=== PATIENT | female | born 1995 | race Caucasian/White ===

== ENCOUNTER 2019-11-25 00:13 | Observation (INO) | payer BC ==
[2019-11-25] MEDS ORDERED: NS 0.9% 1000 ML** 1,000 ML IV ONE ×2 (01:37→04:46)
[2019-11-25] MEDS ORDERED: Ketorolac INJ* 30 MG/ML 1 ML VIAL IV PUSH ONE (01:37)
[2019-11-25] MEDS ORDERED: Ondansetron INJ* 2 MG/ML VIAL IV ONE (01:38)
--- NOTE | 2019-11-25 01:43 | ED ---
GI/ HPI - HPI Summary HPI Summary: 24 year old female presents with abd pain tonight. States pain started in lower abdomen. States pain sometimes radiates to her back. Never had this before. Pain is worst when she moves. She admits to some nausea vomiting. She admits to some pelvic pressure. She denies any abnormal vaginal discharge. Denies any chance of . She denies any diarrhea or constipation. He had normal bowel movement yesterday. No previous abd surgeries. Has history of bipolar. - History of Current Complaint Chief Complaint: EDAbdPain Time Seen by Provider: 11/25/19 01:32 Stated Complaint: ABDOMINAL PAIN PER PT Pain Intensity: 7 - Allergy/Home Medications Allergies/Adverse Reactions: Allergies Allergy/AdvReac Type Severity Reaction Status Date / Time No Known Allergies Allergy Verified 11/25/19 00:17 Home Medications: Home Medications NK [No Home Medications Reported] 02/01/14 [History Confirmed 02/01/14] PMH/Surg Hx/FS Hx/Imm Hx Endocrine/Hematology History: Denies: Hx Anticoagulant Therapy Respiratory History: Denies: Hx Asthma Infectious Disease History: No Infectious Disease History: Denies: Traveled Outside the [place] in Last 30 Days - Family History Known Family History: Positive: Non-Contributory - Social History Alcohol Use: None Substance Use Type: Reports: None Review of Systems Negative: Fever Negative: Chest Pain Negative: Shortness Of Breath Positive: Abdominal Pain, Vomiting, Nausea. Negative: Diarrhea All Other Systems Reviewed And Are Negative: Yes Physical Exam Triage Information Reviewed: Yes Vital Signs On Initial Exam: Initial Vitals Temp Pulse Resp BP Pulse Ox 100.2 F 83 15 118/70 99 11/25/19 00:16 11/25/19 00:16 11/25/19 00:16 11/25/19 00:16 11/25/19 00:16 Vital Signs Reviewed: Yes Appearance: Positive: Well-Appearing Skin: Positive: Warm, Dry Head/Face: Positive: Normal Head/Face Inspection Eyes: Positive: Normal, Conjunctiva Clear ENT: Positive: Pharynx normal Respiratory/Lung Sounds: Positive: Clear to Auscultation, Breath Sounds Present Cardiovascular: Positive: Normal, RRR Abdomen Description: Positive: Soft, Other: - tenderness greatest in RLQ, pos obturator Bowel Sounds: Positive: Present Musculoskeletal: Positive: Normal Neurological: Positive: Normal Psychiatric: Positive: Normal Procedures - Sedation Patient Received Moderate/Deep Sedation with Procedure: No Diagnostics - Vital Signs Vital Signs Temp Pulse Resp BP Pulse Ox 11/25/19 00:16 100.2 F 83 15 118/70 99 - Laboratory Lab Statement: Any lab studies that have been ordered have been reviewed, and results considered in the medical decision making process. Re-Evaluation - Re-Evaluation First Eval Re-Evaluation Time: 02:22 Change: Improved Comment: pain is better GIGU Course/Dx - Course Course Of Treatment: 24 year old female presents with abd pain tonight. States pain started in lower abdomen. States pain sometimes radiates to her back. Never had this before. Pain is worst when she moves. She admits to some nausea vomiting. She admits to some pelvic pressure. She denies any abnormal vaginal discharge. Denies any chance of . She denies any diarrhea or constipation. He had normal bowel movement yesterday. No previous abd surgeries. Has history of bipolar. On exam tenderness greatest in RLQ. pos obturator. patient will be signed out to dr barajas pending lab work and CT. - Diagnoses Differential Diagnoses - Female: Appendicitis, Gastroenteritis (Viral), Ovarian Cyst Provider Diagnoses: Abdominal pain - Critical Care Time Critical Care Statement: Critical care time is provided exclusive of any time spent performing procedures. Discharge ED - Sign-Out/Discharge Documenting (check all that apply): Sign-Out Patient Signing out patient TO: Brandie Barajas - Discharge Plan Condition: Stable Referrals: No Primary Care Phys,NOPCP [Primary Care Provider] - - Billing Disposition and Condition Condition: STABLE
--- NOTE | 2019-11-25 02:21 | ED ---
Progress - Progress Note Progress Note: Patient is received as a sign-out from CHAR Chakraborty at approximately 0230 11/25/19 shift end pending labs and CT abd/pel. Bloodwork was obtained, abnormal values include WBC 19.2, absolute neuts 16.4, absolute monos 1.2, chloride 100, glucose 106, CRP 8.33. CT ABD/PEL IMPRESSION: 1. Mild appendicitis. 2. Otherwise negative CT abdomen/pelvis. No renal or ureteral calculi are evident and there is no evidence of obstructive uropathy. THIS REPORT WAS REVIEWED BY ED PHYSICIAN. 0417 - [facility] called informing of appendicitis. Surgery consult to be obtained. 0459 - Patient's case was discussed with Dr. Perez, Dr. Perez accepts for admission. Home Medications Medication Instructions Recorded Confirmed Type ARIPiprazole TAB* [Abilify TAB*] 10 mg PO DAILY 11/25/19 11/25/19 History Re-Evaluation - Re-Evaluation First Eval Re-Evaluation Time: 02:22 Change: Improved Comment: pain is better Course/Dx - Course Course Of Treatment: During ED course, patient received fluids. - Diagnoses Provider Diagnoses: Appendicitis - Provider Notifications Discussed Care Of Patient With: Rafael Perez Time Discussed With Above Provider: 04:59 Instructed by Provider To: Other - Patient's case was discussed with Dr. Perez , Dr. Perez accepts for admission. - Critical Care Time Critical Care Statement: Critical care time is provided exclusive of any time spent performing procedures. Discharge ED - Sign-Out/Discharge Documenting (check all that apply): Patient Departure - admit - Discharge Plan Condition: Stable Disposition: ADMITTED TO [facility] Referrals: No Primary Care Phys,NOPCP [Primary Care Provider] - - Attestation Statements Document Initiated by Scribe: Yes Documenting Scribe: PETERSON TSE Provider For Whom Scribe is Documenting (Include Credential): VIVIAN MARTEL MD Scribe Attestation: PETERSON West, scribed for VIVIAN MARTEL MD on 11/25/19 at 0503. Status of Scribe Document: Ready
[2019-11-25 02:23] LABS: ABS Lymphocytes 1.5 10^3/ul (1.0-4.8); ABS Monocytes 1.2 10^3/ul (0-0.8); ABS Neutrophils 16.4 10^3/ul (1.5-7.7); Eosinophil % 0.2 %; Hematocrit 41 % (35-47); Hemoglobin 14.4 g/dL (12.0-16.0); Mean Corpuscular HGB Conc 35 g/dL (31-36); Mean Corpuscular Hemoglobin 31 pg (27-31); Mean Corpuscular Volume 87 fL (80-97); Mean Platelet Volume 9.1 fL (7.4-10.4); Platelet Count 261 10^3/uL (150-450); Red Blood Count 4.72 10^6 /uL (3.70-4.87); Red Cell Distribution Width 13 % (10-15); White Blood Count 19.2 10^3/uL (3.5-10.8)
[2019-11-25 02:40] LABS: ALT 23 U/L (7-52); AST 18 U/L (13-39); Albumin 4.6 g/dL (3.2-5.2); Albumin/Globulin Ratio 1.4 (1-3); Alkaline Phosphatase 76 U/L (34-104); Anion Gap 9 mmol/L (2-11); Blood Urea Nitrogen 10 mg/dL (6-24); C Reactive Protein 8.33 mg/L (<8.01); CO2 Carbon Dioxide 29 mmol/L (22-32); Calcium 9.8 mg/dL (8.6-10.3); Chloride 100 mmol/L (101-111); EGFR African American 103.1 (>60); EGFR Non-African American 85.2 (>60); Globulin 3.3 g/dL (2-4); Glucose 106 mg/dL (70-100); Potassium 3.5 mmol/L (3.5-5.0); Sodium 138 mmol/L (135-145); Total Protein 7.9 g/dL (6.4-8.9)
[2019-11-25 02:46] LABS: HCG Pregnancy < 0.60 mIU/mL
[2019-11-25] MEDS ORDERED: Iohexol 300* (CONTRAST) 10 ML SDV IV ONE (03:37)
[2019-11-25] MEDS ORDERED: ceFAZolin 1 GM ADVAN(*) 1 GM ADDV.VIAL IVPB ONE (05:30)
[2019-11-25] MEDS ORDERED: Morphine INJ* 2 MG/ML 1 ML SYRINGE (TWO MG - NEW SYRINGE VERSION) IV PRN (05:36)
[2019-11-25] MEDS ORDERED: Ondansetron INJ* 2 MG/ML VIAL IV PRN (05:39)
[2019-11-25] MEDS ORDERED: ceFOXitin 2 GM IVPREMIX* 2 GM/50 ML BAG IVPB ONE (05:45)
[2019-11-25 06:48] LABS: Urine Appearance Clear; Urine Bilirubin Negative (Negative); Urine Blood Negative (Negative); Urine Color Straw; Urine Glucose Negative (Negative); Urine Ketones Negative (Negative); Urine Nitrite Negative (Negative); Urine Protein Negative (Negative); Urine Specific Gravity 1.053 (1.010-1.030); Urine Urobilinogen Negative (Negative)
[2019-11-25] MEDS: Lactated Ringers 1000 ML Bag* 1,000 ML IV SCH ×2 (08:12→10:21)
--- NOTE | 2019-11-25 08:20 | HP ---
H&P (Free Text) History and Physical: History and Physical Chief complaint: ABD pain x 1 day HPI: 24 yo F that began with RLQ ABD pain last night. She ate a meal around 7 pm , began with nausea, vomiting, and pain. The pain has been getting slightly worse. Worse with movement, no alleviating factors. She has not felt this particular pain before. Denies fever, chills, SOB, chest pain. Last BM was yesterday morning and normal for her. Last meal was her dinner yesterday. Surgical history: Denies. Social history: Rare smoker, rare use of etoh. No drug use otherwise. FH: Negative for blood clots or bleeding problems. PMH: Biploar disorder. Allergies: NKDA. Home Medications Medication Instructions Recorded Confirmed Type ARIPiprazole TAB* [Abilify TAB*] 10 mg PO DAILY 11/25/19 11/25/19 History ROS: 12 point ROS negative, except as otherwise stated above. Temp Pulse Resp BP Pulse Ox 97.8 F 65 12 99/59 99 11/25/19 07:48 11/25/19 07:48 11/25/19 07:48 11/25/19 07:48 11/25/19 07:48 Laboratory Last Values WBC 19.2 10^3/uL (3.5-10.8) H 11/25/19 02:10 RBC 4.72 10^6 /uL (3.70-4.87) 11/25/19 02:10 Hgb 14.4 g/dL (12.0-16.0) 11/25/19 02:10 Hct 41 % (35-47) 11/25/19 02:10 MCV 87 fL (80-97) 11/25/19 02:10 MCH 31 pg (27-31) 11/25/19 02:10 MCHC 35 g/dL (31-36) 11/25/19 02:10 RDW 13 % (10-15) 11/25/19 02:10 Plt Count 261 10^3/uL (150-450) 11/25/19 02:10 MPV 9.1 fL (7.4-10.4) 11/25/19 02:10 Neut % (Auto) 85.5 % 11/25/19 02:10 Lymph % (Auto) 8.0 % 11/25/19 02:10 [place] % (Auto) 6.1 % 11/25/19 02:10 Eos % (Auto) 0.2 % 11/25/19 02:10 Baso % (Auto) 0.2 % 11/25/19 02:10 Absolute Neuts (auto) 16.4 10^3/ul (1.5-7.7) H 11/25/19 02:10 Absolute Lymphs (auto) 1.5 10^3/ul (1.0-4.8) 11/25/19 02:10 Absolute Monos (auto) 1.2 10^3/ul (0-0.8) H 11/25/19 02:10 Absolute Eos (auto) 0.0 10^3/ul (0-0.6) 11/25/19 02:10 Absolute Basos (auto) 0.0 10^3/ul (0-0.2) 11/25/19 02:10 Absolute Nucleated RBC 0.0 10^3/ul 11/25/19 02:10 Nucleated RBC % 0.0 11/25/19 02:10 Sodium 138 mmol/L (135-145) 11/25/19 02:10 Potassium 3.5 mmol/L (3.5-5.0) 11/25/19 02:10 Chloride 100 mmol/L (101-111) L 11/25/19 02:10 Carbon Dioxide 29 mmol/L (22-32) 11/25/19 02:10 Anion Gap 9 mmol/L (2-11) 11/25/19 02:10 BUN 10 mg/dL (6-24) 11/25/19 02:10 Creatinine 0.83 mg/dL (0.51-0.95) 11/25/19 02:10 Est GFR ( Amer) 103.1 (>60) 11/25/19 02:10 Est GFR (Non-Af Amer) 85.2 (>60) 11/25/19 02:10 BUN/Creatinine Ratio 12.0 (8-20) 11/25/19 02:10 Glucose 106 mg/dL (70-100) H 11/25/19 02:10 Lactic Acid 1.4 mmol/L (0.5-2.0) 11/25/19 07:14 Calcium 9.8 mg/dL (8.6-10.3) 11/25/19 02:10 Total Bilirubin 0.30 mg/dL (0.2-1.0) 11/25/19 02:10 AST 18 U/L (13-39) 11/25/19 02:10 ALT 23 U/L (7-52) 11/25/19 02:10 Alkaline Phosphatase 76 U/L (34-104) 11/25/19 02:10 C-Reactive Protein 8.33 mg/L (<8.01) H 11/25/19 02:10 Total Protein 7.9 g/dL (6.4-8.9) 11/25/19 02:10 Albumin 4.6 g/dL (3.2-5.2) 11/25/19 02:10 Globulin 3.3 g/dL (2-4) 11/25/19 02:10 Albumin/Globulin Ratio 1.4 (1-3) 11/25/19 02:10 Lipase 16 U/L (11.0-82.0) 11/25/19 02:10 Beta HCG, Quant < 0.60 mIU/mL 11/25/19 02:10 Urine Color Straw 11/25/19 06:35 Urine Appearance Clear 11/25/19 06:35 Urine pH 7.0 (5-9) 11/25/19 06:35 Ur Specific Chicken 1.053 (1.010-1.030) H 11/25/19 06:35 Urine Protein Negative (Negative) 11/25/19 06:35 Urine Ketones Negative (Negative) 11/25/19 06:35 Urine Blood Negative (Negative) 11/25/19 06:35 Urine Nitrate Negative (Negative) 11/25/19 06:35 Urine Bilirubin Negative (Negative) 11/25/19 06:35 Urine Urobilinogen Negative (Negative) 11/25/19 06:35 Ur Leukocyte Esterase Negative (Negative) 11/25/19 06:35 Urine Glucose Negative (Negative) 11/25/19 06:35 CT ABD/Pelvis W: Mild appendicitis, otherwise negative CT. Assessment and plan: 24 yo F with acute appendicitis. Plan is for laparoscopic appendectomy today. Continue ABX, NPO status.
[2019-11-25] MEDS ORDERED: Acetaminophen TAB* 325 MG PO ONE (09:19)
[2019-11-25] MEDS ORDERED: Buffered Lidocaine 1% SYRIN* 1 ML/SYRINGE INTRADERM ONE (09:19)
[2019-11-25] MEDS ORDERED: Naloxone* 0.4 MG/ML 1 ML VIAL IV PRN (09:20)
[2019-11-25] MEDS ORDERED: HYDROmorphone INJ1* 1 MG/ML SYRINGE IV PRN (09:20)
[2019-11-25] MEDS ORDERED: diPHENhydraMINE IV* 50 MG/ML 1 ml VIAL (BENADRYL) IV PRN (09:20)
[2019-11-25] MEDS ORDERED: oxyCODONE TAB* 5 MG TAB PO PRN (09:20)
[2019-11-25] MEDS ORDERED: PROCHLORPERAZINE INJ 5 MG/ML 2 ML VIAL IV PRN (09:20)
[2019-11-25] MEDS ORDERED: Lactated Ringers 1000 ML Bag* 1,000 ML IV SCH (10:00)
[2019-11-25] MEDS ORDERED: Acetaminophen TAB* 325 MG ONE ×2 (10:16→10:19)
[2019-11-25] MEDS ORDERED: Bupivacaine 0.25% SDV* 30 ML ONE (10:49)
[2019-11-25] MEDS ORDERED: ceFOXitin 2 GM IVPREMIX* 2 GM/50 ML BAG ONE (10:54)
[2019-11-25] MEDS ORDERED: Succinylcholine* 20 MG/ML 10 ML VIAL ONE (10:56)
[2019-11-25] MEDS ORDERED: Midazolam* 1 MG/ML 2 ML VIAL (2 MG) ONE (10:59)
[2019-11-25] MEDS ORDERED: fentaNYL* 50 MCG/ML 5 ML VIAL (250 MCG VIAL) ONE (10:59)
[2019-11-25] MEDS ORDERED: Propofol* 10 MG/ML 20 ML BTL ONE (10:59)
[2019-11-25] MEDS ORDERED: Lidocaine 2% PF * 5 ML VIAL ONE (10:59)
[2019-11-25] MEDS ORDERED: Rocuronium* 10 MG/ML VIAL ONE (11:00)
[2019-11-25] MEDS ORDERED: Glycopyrrolate IV* 0.2 MG/ML 1 ML VIAL ONE (11:27)
[2019-11-25] MEDS ORDERED: Ketorolac INJ* 30 MG/ML 1 ML VIAL ONE (11:27)
[2019-11-25] MEDS ORDERED: Ondansetron INJ* 2 MG/ML VIAL ONE (11:27)
[2019-11-25] MEDS ORDERED: Dexamethasone IV* 4 MG/ML 1 ML (4 MG) ONE (11:27)
[2019-11-25] MEDS ORDERED: HYDROmorphone INJ1* 1 MG/ML SYRINGE ONE (11:45)
--- NOTE | 2019-11-25 11:56 | BRIEFOPN ---
Brief Operative/Procedure Note - Operation Details Pre-Op Diagnosis: Acute appendicitis Post-Op Diagnosis: Acute appendicitis Procedures: Laparoscopic appendectomy Surgeon(s)/Proceduralists: Dr. Pérez Anesthesia: GETA Estimated Blood Loss: Scant Findings: As above Specimen(s)/Culture(s) Description: Appendix Complications: None Miscellaneous Procedure Notes: None
--- NOTE | 2019-11-25 12:04 | DS ---
Admit date: 11/25/2019 Discharge date: 11/25/2019 Admit diagnosis: Acute appendicitis Discharge diagnosis: Acute appendicitis PEX General: Alert, in NAD. Integumentary: No rashes, jaundice, petechia. HEENT: Oropharynx clear. Trachea midline. PERRLA. Heart: RRR, no MRG. Lungs: CTAB, no WRR. ABD: BS present. Soft, nondistended. Tender around incisions, which are C/D/I. Extremities: Distal pulses intact bilaterally. No edema. Calves soft and nontender. Labs: Unremarkable. Procedure: Laparoscopic appendectomy Hospital course: Presented with ABD to ED on 11/25/2019 and diagnosed with acute appendicitis. She was admitted and placed in SSU. Later in the day, she was taken for the above named procedure, which was tolerated well. After recovering appropriately from anesthesia, she was discharged from PACU. Instructions were given to the pt regarding diet, meds, activity, post op follow up, and care for incisions. All questions were answered. Discharged home in stable condition on 11/25/2019.
[2019-11-25] MEDS ORDERED: oxyCODONE TAB* 5 MG TAB ONE (12:53)
--- NOTE | 2019-11-25 13:25 | OP ---
OPERATIVE REPORT: DATE OF OPERATION: 11/25/19 DATE OF : [birth year] SURGEON: Gordy Pérez MD. PRE-OP DIAGNOSIS: Appendicitis. POST-OP DIAGNOSIS: Appendicitis. OPERATIVE PROCEDURE: Laparoscopic appendectomy. INDICATIONS FOR PROCEDURE: Right lower quadrant pain. CT scan concerning for appendicitis. Risks of surgery including, but not limited to, bleeding, infection, injury to intraabdominal contents including the bowel, others explained to the patient, who seemed to understand and agreed to the procedure and all questions were answered. DESCRIPTION OF PROCEDURE: The patient was taken to the operating room, placed supine, and preoperative antibiotics were given. After successful induction of general endotracheal anesthesia, the abdomen was prepped and draped in a sterile fashion. A time-out was performed indicating correct patient, correct procedure. A left lower quadrant 5-mm Optiview trocar was placed under direct visualization of the camera. Pneumoperitoneum was achieved to 15 mmHg. Camera was placed in the abdomen. The abdomen was scanned. There was no obvious injury from trocar placement. A 12 mm umbilical and 5 mm suprapubic trocar were placed under direct visualization of the camera. The patient was placed in slight Trendelenburg position, tilted towards her left and the appendix was well visualized. Slightly inflamed. The base of the appendix was isolated, divided with a stapler. The mesoappendix was divided with a staple load, vascular. The appendix was placed in an Endobag and removed via the umbilical port site. The right upper quadrant was irrigated and aspirated dry. EBL minimal. Hemostasis was intact. Clips were in place. No bleeding, no abscess in the pelvis. Pneumoperitoneum was brought down to 5 mmHg. CO2 was shut off, the rest was aspirated out. Trocars were removed. The skin was closed with Monocryl and glue. She tolerated the procedure well and she was extubated and taken to the recovery room in stable condition. [id number]/CPS #: [id number] MTDD
[2019-11-25 14:52] VITALS: BP 93/56
== END 2019-11-25 16:00 | disposition home or self-care (01) ==
LOC: ED 00:13 → SSU 05:08
PROVIDERS: ADMIT Surgery; ATTEND Surgery
DX: K35.80 Unspecified acute appendicitis (principal); R11.2 Nausea with vomiting, unspecified; Z79.899 Other long term (current) drug therapy; F31.9 Bipolar disorder, unspecified
CPT/HCPCS: 36415; 74177; 80053; 81003; 83605; 83690; 84702; 85025; 86140; 88304; 96361; 96365; 96375; 99284; A9270-GY; C1776; G0378; J0330; J0690; J0694; J1100; J1170; J1885; J2250; J2405; J2704; J3010; J3490; Q9967

== ENCOUNTER 2020-12-23 14:06 | Inpatient (IN) ==
[2020-12-23] MEDS ORDERED: Lactated Ringers 1000 ml BAG 1,000 ML IV ONE (14:34)
[2020-12-23 15:05] LABS: ABS Basophils 0.1 10^3/ul (0-0.2); ABS Eosinophils 0.1 10^3/ul (0-0.6); ABS Lymphocytes 1.9 10^3/ul (1.0-4.8); ABS Monocytes 0.6 10^3/ul (0-0.8); ABS Neutrophils 9.7 10^3/ul (1.5-7.7); Eosinophil % 0.6 %; Hematocrit 35 % (35-47); Hemoglobin 12.2 g/dL (12.0-16.0); Lymphocyte % 15.3 %; Mean Corpuscular HGB Conc 35 g/dL (31-36); Mean Corpuscular Hemoglobin 31 pg (27-31); Mean Corpuscular Volume 88 fL (80-97); Mean Platelet Volume 9.1 fL (7.4-10.4); Platelet Count 218 10^3/uL (150-450); Red Blood Count 3.96 10^6 /uL (3.70-4.87); Red Cell Distribution Width 13 % (10-15); White Blood Count 12.3 10^3/uL (3.5-10.8)
[2020-12-23 16:59] LABS: Urine Benzodiazepine Screen None Detected (None Detect); Urine Cannabinoids Screen None Detected (None Detect); Urine Opiates Screen None Detected (None Detect)
[2020-12-24] MEDS ORDERED: Morphine 10 MG/ML VIAL (1 ml) IV ONE (04:06)
[2020-12-24] MEDS ORDERED: Promethazine INJ(RESTRICTED) 25 MG/ML 1 ml VIAL IV ONE (04:10)
[2020-12-24] MEDS: Lactated Ringers 1000 ml BAG 1,000 ML IV SCH ×3 (13:47→20:39)
[2020-12-24] MEDS: Oxytocin in LR 20 UNITS/1,000 ML BAG IVPB SCH ×2 (13:49→20:38)
[2020-12-24] MEDS ORDERED: OBEPIDURAL 250 ML EPIDURAL ONE (17:19)
[2020-12-24] MEDS ORDERED: fentaNYL 100 mcg/2 ml 50 MCG/ML VIAL ONE (18:11)
[2020-12-24] MEDS ORDERED: fentaNYL 100 mcg/2 ml 50 MCG/ML VIAL IV SLOW PU ONE (19:00)
[2020-12-24] MEDS ORDERED: Lactated Ringers 1000 ml BAG 1,000 ML IV ONE (20:30)
[2020-12-24] MEDS ORDERED: Phenylephrine 40 mcg/mL 10mL (400mcg) SYRINGE IV PUSH PRN ×2 (20:30)
[2020-12-24] MEDS ORDERED: Sodium Citrate/Citric Acid LIQ 15 ML UDC PO PRN (20:30)
[2020-12-24] MEDS ORDERED: OBEPIDURAL 250 ML EPIDURAL SCH (21:00)
[2020-12-24] MEDS ORDERED: Lactated Ringers 1000 ml BAG 1,000 ML IV SCH (21:00)
[2020-12-24 21:09] LABS: Urine Appearance Cloudy; Urine Bilirubin Negative (Negative); Urine Blood Negative (Negative); Urine Color Yellow; Urine Glucose Negative (Negative); Urine Ketones 1+ (Negative); Urine Nitrite Negative (Negative); Urine Protein Negative (Negative); Urine Specific Gravity 1.008 (1.002-1.030); Urine Urobilinogen Negative (Negative)
[2020-12-25] MEDS ORDERED: OBEPIDURAL 250 ML EPIDURAL ONE (12:25)
[2020-12-25] MEDS ORDERED: Witch Hazel PAD JAR TOPICAL PRN (14:39)
[2020-12-25] MEDS ORDERED: Dibucaine 1% OINT 28.35 GM TUBE PR PRN (14:39)
[2020-12-25] MEDS ORDERED: Lactated Ringers 1000 ml BAG 1,000 ML IV SCH (15:00)
[2020-12-25] MEDS ORDERED: Oxytocin in LR 20 UNITS/1,000 ML BAG IVPB SCH (15:00)
[2020-12-25] MEDS ORDERED: Lidocaine 1% VIAL 10 MG/ML VIAL ONE (16:16)
[2020-12-26 07:07] LABS: ABS Basophils 0.1 10^3/ul (0-0.2); ABS Eosinophils 0.1 10^3/ul (0-0.6); ABS Lymphocytes 1.6 10^3/ul (1.0-4.8); ABS Monocytes 1.2 10^3/ul (0-0.8); ABS Neutrophils 12.2 10^3/ul (1.5-7.7); Eosinophil % 0.5 %; Hematocrit 28 % (35-47); Hemoglobin 9.8 g/dL (12.0-16.0); Lymphocyte % 10.6 %; Mean Corpuscular HGB Conc 35 g/dL (31-36); Mean Corpuscular Hemoglobin 31 pg (27-31); Mean Corpuscular Volume 88 fL (80-97); Mean Platelet Volume 8.7 fL (7.4-10.4); Platelet Count 154 10^3/uL (150-450); Red Blood Count 3.18 10^6 /uL (3.70-4.87); Red Cell Distribution Width 14 % (10-15); White Blood Count 15.1 10^3/uL (3.5-10.8)
[2020-12-28 19:45] VITALS: BP 129/61
== END 2020-12-28 21:50 | disposition home or self-care (01) | DRG 560 ==
LOC: MCHOBOUT 14:06 → MCHOB 14:42
PROVIDERS: ADMIT Midwife; ATTEND Midwife